=== PATIENT | female | born 1955 | race Caucasian/White ===

== ENCOUNTER 2018-07-09 07:46 | Day surgery (SDC) | END 2018-07-09 17:48 | disposition home or self-care (01) ==

== ENCOUNTER 2018-08-20 09:47 | Observation (INO) | payer OTHER ==
[2018-08-19 17:22] VITALS: BMI 26.0
[~2018-08-20] VITALS: Ht 157.5 cm; Wt 63.1 kg
[2018-08-20] VITALS (27 sets, daily range): BP systolic 119–159; BP diastolic 58–85; PULSE 70–88; RESP 10–20; Ht 157.5 cm; Wt 63.1 kg
[2018-08-20] MEDS ORDERED: CEFAZOLIN 2 GM/50 ML (PMX) 50 ML IVPB SCH (10:00)
[2018-08-20] MEDS: SOD CHLORIDE 0.9% 1,000 ML IV SCH ×2 (10:00→23:20)
[2018-08-20] MEDS ORDERED: SIMV20TA PO (11:06)
[2018-08-20] MEDS ORDERED: LEVO50TA7 PO (11:06)
--- NOTE | 2018-08-20 11:45 | PREAC ---
Date/Time of Note Date/Time of Note DATE: 08/20/18 TIME: 11:45 Anesthesia Eval and Record Evaluation Time Pre-Procedure Interview DATE: 08/20/18 TIME: 11:45 Age 62 Sex female NPO: 8 hrs Preoperative diagnosis R breast CA Planned procedure R radical mastectomy Past Medical History Past Medical History: Includes Cardio: HTN, Dyslipidemia Surgery & Anesthesia Issues No known issue Meds Anticoagulation: No Beta Purvi within 24 hr: No Reason Beta Purvi not given: Pt. not on B-Purvi Reported Medications Simvastatin* (Zocor*) 20 Mg Tablet, 20 MG PO QHS, #30 TAB 08/20/18 Levothyroxine Sodium* (Levothyroxine Sodium*) 50 Mcg Tablet, 50 MCG PO BEFORE BREAKFAST, #30 TAB 08/20/18 Current Medications Cefazolin Sodium/ Dextrose 50 ml @ 100 mls/hr ONCE IVPB ; Start 08/20/18 at 10:00; Stop 08/20/18 at 14:00 Sodium Chloride 1,000 ml @ 75 mls/hr [id number] IV ; Start 08/20/18 at 10:00 Meds reviewed: Yes Allergies Coded Allergies: No Known Allergies (Verified Allergy, Unknown, 08/19/18) Allergies Reviewed: Yes Labs/Studies Labs Reviewed: Reviewed by anesthesiologist test: Negative Studies: ECG Pre-procedure Exam Last vitals Vital Signs Date Temp Pulse Resp B/P (MAP) Pulse Ox O2 O2 Flow FiO2 Time Delivery Rate 08/20/18 98.4 72 16 128/72 97 Room Air 11:11 (90) Airway: Adequate mouth opening, Adequate thyromental dist Mallampati: Mallampati II Teeth: Normal Lung: Normal Heart: Normal ASA Physical Status ASA physical status: 2 Emergency: None Planned Anesthetic General/MAC: ETT Pre-operative Attestations Prior to commencing anesthesia and surgery, the patient was re-evaluated, there was verification of: *The patient's identity *The results of appropriate recent lab work and preoperative vital signs *The above evaluation not changing prior to induction *Anesthetic plan, risk benefits, alternative and complications discussed with patient/family; questions answered; patient/family understands, accepts and wishes to proceed. GENARO MARTINEZ Aug 20, 2018 11:45
[2018-08-20] MEDS ORDERED: ALBUTEROL 0.083% (NEB) 2.5 MG/3 ML AMP HHN PRN (12:00)
[2018-08-20] MEDS ORDERED: FENTAnyl 50 MCG/ML VIAL IV PRN ×3 (12:00)
[2018-08-20] MEDS ORDERED: DIPHENHYDRAMINE 50 MG INJ IV PRN (12:00)
[2018-08-20] MEDS ORDERED: ONDANSETRON 4 MG INJ IV PRN ×2 (12:00→13:30)
[2018-08-20] MEDS ORDERED: METOCLOPRAMIDE 10 MG INJ IV PRN (12:00)
[2018-08-20] MEDS ORDERED: HYDROmorphONE 1 MG/5 ML IV SYRINGE IV PRN ×3 (12:00)
[2018-08-20] MEDS ORDERED: MEPERIDINE 25 MG INJ IV PRN (12:00)
[2018-08-20] MEDS ORDERED: FENTAnyl 50 MCG/ML VIAL ONE (12:12)
[2018-08-20] MEDS ORDERED: NEOSTIGMINE 3 MG/3 ML SYRINGE ONE (12:22)
[2018-08-20] MEDS ORDERED: SUCCINYLCHOLINE CHLORIDE 100 MG/5 ML SYG IV ONE (12:22)
[2018-08-20] MEDS ORDERED: GLYCOPYRROLATE 0.4 MG INJ ONE (12:22)
[2018-08-20] MEDS ORDERED: ROCURONIUM 50 MG INJ ONE (12:22)
[2018-08-20] MEDS ORDERED: PROPOFOL 20 ML ONE (12:22)
[2018-08-20] MEDS ORDERED: CEFAZOLIN 1 GM INJ ONE (12:22)
--- NOTE | 2018-08-20 13:13 | SIPON ---
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
[2018-08-20] MEDS ORDERED: FAMOTIDINE 20 MG INJ ONE (13:25)
[2018-08-20] MEDS ORDERED: ONDANSETRON 4 MG INJ ONE (13:25)
[2018-08-20] MEDS ORDERED: morphine 4 MG/ML VIAL IV PRN (13:30)
[2018-08-20] MEDS ORDERED: ACETAMINOPHEN 1000MG/100ML IV 100 ML IVPB PRN (13:30)
--- NOTE | 2018-08-20 14:10 | OPR ---
DATE OF OPERATION: 08/20/2018 PREOPERATIVE DIAGNOSIS: Extensive ductal carcinoma in situ, right breast, need for right mastectomy. POSTOPERATIVE DIAGNOSIS: Extensive ductal carcinoma in situ, right breast, need for right mastectomy . OPERATION PERFORMED: Right modified radical mastectomy, resection of portion of pectoralis major mus christopher. ANESTHESIA: General. ANESTHESIOLOGIST: Rick Marino MD SURGEON: Sohail Le MD DRESSING ROOM PORTER: Kwame Meng MD and Joleen Irving MD INDICATIONS FOR PROCEDURE: The patient is a 62-year-old female who underwent surveillance mammograph y and was found to have a very suspicious microcalcifications in this right subareolar location. Cor e biopsy revealed DCIS. Subsequently, she underwent needle-directed excisional biopsy; however, the margins were grossly inadequate based on the location and the fact that the nipple would have to be r emoved. The patient was counseled as to the benefit of a right mastectomy with axillary sampling in view of the fact that there is a potential for an invasive component. She consented and was schedule d for surgery. DESCRIPTION OF PROCEDURE: The patient was brought to the operating theater, placed under general ane sthesia. The right breast and axillary region were prepped and draped in usual sterile fashion. Amor nned elliptical incision was demarcated widely around the nipple areolar complex with marking pen. T he incision was then carried out with 15-blade scalpel. Subcutaneous tissue was dissected with caute ry. The skin edges were then elevated with Allis Abdi clamps and using cautery, skin flaps were cre ated first superiorly to the clavicle, then medially to the sternal border, inferiorly to the inframa mmary fold and laterally until the latissimus dorsi muscle was identified throughout its course. Mas tectomy then took place from medial to lateral. During the process of the mastectomy, it became obvi ous that the previous biopsy cavity was involving some pectoralis major muscle. Therefore, a portion of the pectoralis major muscle was resected en bloc with the specimen. Mastectomy then continued to the border of the pectoral major muscle where the pectoralis minor muscle was identified. The clavi pectoral fascia was incised with blunt dissection along the chest wall. The long thoracic nerve was identified. Dissection of level [address] using the Voyant device, taking great care to preserve the intercostobrachial nerves. The lymph nodes were then removed en bloc with the jing denson. Final connective tissue attachments to latissimus dorsi were transected. Specimen was orie nted and sent for permanent pathologic analysis. The wound was irrigated. Minimal bleeding was cont rolled with cautery. Two #10 flat Alejandro-Combs drains were then brought through the right mid axill patrick line, one was cut to size and laid within the axilla, the other was cut to size and laid over the pectoralis major muscle. Both drains were secured in place with 2-0 nylon sutures in the standard f ashion. The skin was then reapproximated with a deep dermal layer of 4-0 Vicryl sutures in interrupt ed fashion, followed by final skin approximation with skin nathalia. The patient tolerated the proced ure well. The total blood loss was approximately 40 mL. There were no complications and the patient was then transported in stable condition to the recovery room where circumferential compression wrap was applied. Dictated By: SOHAIL LE MD TL/RIANA Conf#: [id number] DID#: [id number] CC: ERIN FERRELL MD;*EndCC*
--- NOTE | 2018-08-20 14:53 | PAC ---
Date/Time of Note Date/Time of Note DATE: 08/20/18 TIME: 14:53 Post-Anesthesia Notes Post-Anesthesia Note Last documented vital signs Vital Signs Date Temp Pulse Resp B/P (MAP) Pulse Ox O2 O2 Flow FiO2 Time Delivery Rate 08/20/18 Nasal 2.0 14:10 Cannula 08/20/18 98.3 13:46 08/20/18 72 16 128/72 97 11:11 (90) Activity: WNL Respiratory function: WNL Cardiovascular function: WNL Mental status: Baseline Pain reasonably controlled: Yes Hydration appropriate: Yes Nausea/Vomiting absent: Yes GENARO MARTINEZ Aug 20, 2018 14:53
--- NOTE | 2018-08-20 15:43 | NUR ---
PACU NOTES: PATIENT AWAKE AND ALERT. RECEIVED FROM OR WITH LEFT UPPER ARM INFILTRATED IV SITE, BP CUFF ON LEFT ARM. REINSERTED ON LEFT LOWER ARM #22 INFUSING, ICE PACK AND WARM COMPRESS PLACED ON LEFT UPPER ARM. RIGHT BREAST W/ DRESSING DRY AND INTACT WITH X 2 NIRANJAN DRAIN SEROSANGUINOUS OUTPUT #1 W/ 10 ML #2 W/ 25 ML. ABLE TO SIT AND REPOSITION, SCD IN PLACED. NOTIFIED DR. FERRELL OF ADMISSION. ABLE TO DO INCENTIVE SPIROMETER UPTO 1000 ML. FAMILY NOTIFIED OF TRANSFER TO ROOM 410-A, TOLERATED P.O FLUIDS.
[2018-08-20] MEDS ORDERED: HYDROCODONE/APAP (5/325) TAB PO PRN (16:00)
--- NOTE | 2018-08-20 16:28 | HP ---
DATE OF ADMISSION: 08/20/2018 CHIEF COMPLAINT AND HISTORY OF PRESENT ILLNESS: The patient is a 62-year-old female with history of core biopsy-proven right breast cancer. The patient was diagnosed with DCIS. Subsequently, she unde rwent excisional biopsy; however margins were grossly inadequate based on the location. The patient was seen by Dr. Chi as an outpatient and has been brought into the hospital today for right mastect ashwini with axillary sampling. The patient does have significant chest wall pain. The patient is there fore being admitted for further evaluation and management. The patient denied any history of fever o r chills. No history of headache, dizziness, syncope. No history of focal weakness. No history of abdominal pain. No history of vomiting or diarrhea. No history of recent dysuria or hematuria. No history of any joint swelling or skin rash. REVIEW OF SYSTEMS: Other than postoperative pain, rest of review of systems unremarkable. PAST SURGICAL HISTORY: The patient is status post cholecystectomy and as mentioned above, she is als o status post right needle-directed partial mastectomy on 07/09/2018. ALLERGIES: NONE. SOCIAL HISTORY: No smoking or alcohol. FAMILY HISTORY: Sisters have breast cancer. PHYSICAL EXAMINATION: GENERAL: Revealed the patient to be awake, alert, fairly oriented. VITAL SIGNS: Temperature 98.3, pulse 76, respirations 15, blood pressure 137/73, O2 saturation 98% o n 2 liters nasal cannula. HEENT: No eye discharge or redness. Conjunctivae are normal. Oropharynx is clear. NECK: No mass. CHEST: Fairly clear. CARDIOVASCULAR: S1, S2 normal. ABDOMEN: Soft, nondistended, nontender. EXTREMITIES: No leg edema. NEUROLOGIC: Revealed the patient to be awake, alert, fairly oriented with no gross focal deficit. LABORATORY DATA: Sodium 142, potassium 5, BUN 11, creatinine 0.7, glucose 91. Liver enzymes normal. Coagulation profile normal. WBC 6.7, hemoglobin 13.9, platelet 397. IMPRESSION: 1. Extensive ductal carcinoma in situ, right breast, status post right modified radical mastectomy. 2. Hypothyroidism. 3. Dyslipidemia. PLAN: The patient will be admitted on medical floor. The patient was started on clear liquid diet, which will be advanced as tolerated. The patient will have SCD for DVT prophylaxis. For pain contro l, the patient will be given Tylenol, [place] and IV morphine. We will resume statin and Synthroid. P rocky of care was discussed with the patient's family. We will continue to follow. Dictated By: ERIN SPARROW/RIANA Conf#: [id number] DID#: [id number] CC: REINALDO CHI MD;*EndCC*
[2018-08-20] MEDS: D5W-0.45 NACL + KCL 20 MEQ 1,000 ML IV SCH ×2 (16:44→21:14)
--- NOTE | 2018-08-20 19:00 | NUR ---
RN NOTES: Received patient from PACU at 1530, report given by Cheryl RUDOLPH; patient is alert and oriented x4, able to make needs known; no c/o pain or discomfort upon assessment; no SOB/respiratory distress noted, 99% on 2L/min of O2 via NC, IS encouraged; dressing to right chest incision is clean, dry and intact, bias wrap in place, connected to 2 NIRANJAN drains, patent and draining well; patient ambulates with assist; patient was already seen by Dr. Myles with orders made, noted; kept clean, dry and comfortable; call light placed within reached; all needs attended.
[2018-08-20] MEDS: ATORVASTATIN 10 MG TAB PO SCH (20:40)
[2018-08-21] VITALS: BP 129/63; PULSE 72; RESP 20
[2018-08-21] MEDS: D5W-0.45 NACL + KCL 20 MEQ 1,000 ML IV SCH ×2 (00:32→13:14)
[2018-08-21 05:00] VITALS: BP 120/77; PULSE 77; RESP 18
--- NOTE | 2018-08-21 05:18 | NUR ---
EOSS Patient alert oriented, no complained of discomfort. Vital signs stable no respiratory distress.Chest covered with bias wrap it was CDI. [address] wild moderate sanguinous output. Voiding adequately using the toilet. Diet was tolerated. IS encouraged and tolerated well. All needs attended, call light is within reach.
[2018-08-21] MEDS: LEVOTHYROXINE 50 MCG TAB PO SCH (06:27)
[2018-08-21 07:25] VITALS: BP 132/67; PULSE 82; RESP 18
[2018-08-21] MEDS ORDERED: INFLUENZA VIRUS VACCINE 0.5 ML (DISPENSING) IM* ONE (09:00)
--- NOTE | 2018-08-21 12:06 | PN ---
Date/Time of Note Date/Time of Note DATE: 08/21/18 TIME: 12:06 Assessment/Plan VTE Prophylaxis Risk score (from Ns)>0 risk: 4 SCD applied (from Ns): Yes Pharmacological prophylaxis: LMWH Lines/Catheters IV Catheter Type (from Nrs): Saline Lock Urinary Cath still in place: No Assessment/Plan Hospital Course 1. Extensive ductal carcinoma in situ, right breast, status post right modified radical mastectomy. 2. Hypothyroidism. 3. Dyslipidemia. Results 24hrs Laboratory Tests Test 08/21/18 07:02 Lab Scanned Report REFERENCE LAB Subjective 24 Hr Interval Summary Free Text/Dictation Patient has some pain but is controlled Exam/Review of Systems Exam Vitals Vital Signs Date Temp Pulse Resp B/P (MAP) Pulse Ox O2 O2 Flow FiO2 Time Delivery Rate 08/21/18 99.1 82 18 132/67 95 Room Air 07:25 (88) 08/20/18 2.0 18:30 Intake and Output 08/20/18 08/20/18 08/21/18 1515:00 23:00 07:00 IntakeIntake Total 360 ml 770 ml 1810 ml OutputOutput Total 20 ml 90 ml 61 ml BalanceBalance 340 ml 680 ml 1749 ml Constitutional: well developed Head: normocephalic, atraumatic Neck: supple Respiratory: diminished breath sounds Cardiovascular: regular rate and rhythm Gastrointestinal: soft, non-tender Extremities: normal pulses Results Results 24hrs Laboratory Tests Test 08/21/18 07:02 Lab Scanned Report REFERENCE LAB Medications Medication Current Medications Sodium Chloride 1,000 ml @ 75 mls/hr [id number] IV Last administered on 08/20/18at 10:00; Admin Dose 75 MLS/HR; Start 08/20/18 at 10:00 Ondansetron HCl (Zofran Inj) 4 mg Q6H PRN IV NAUSEA AND/OR VOMITING; Start 08/20/18 at 13:30 Potassium Chloride/Dextrose/ Sod Cl 1,000 ml @ 125 mls/hr Q8H IV Last administered on 08/21/18at 00:32; Admin Dose 125 MLS/HR; Start 08/20/18 at 13:14 Morphine Sulfate (morphine) 2 mg Q1H PRN IV fall risk; Start 08/20/18 at 13:30 Acetaminophen 100 ml @ 400 mls/hr Q6H PRN IVPB BREAKTHROUGH PAIN; Start 08/20/18 at 13:30; Stop 08/21/18 at 13:29 Acetaminophen/ Hydrocodone Bitart ([place] (5/325)) 1 tab Q4H PRN PO MODERATE PAIN LEVEL 4-6; Start 08/20/18 at 16:00 Levothyroxine Sodium (Synthroid) 50 mcg BEFORE BREAKFAST PO Last administered on 08/21/18at 06:27; Admin Dose 50 MCG; Start 08/21/18 at 07:00 Atorvastatin Calcium (Lipitor) 10 mg QHS PO Last administered on 08/20/18at 20:40; Admin Dose 10 MG; Start 08/20/18 at 21:00 SONYA WAHL Aug 21, 2018 12:06
[2018-08-21] MEDS ORDERED: CEPASTAT LOZENGE ONE (12:16)
[2018-08-21] MEDS ORDERED: CEPASTAT LOZENGE MT PRN (12:30)
[2018-08-21] MEDS: SOD CHLORIDE 0.9% 1,000 ML IV SCH (12:40)
[2018-08-21] MEDS ORDERED: morphine LIQ (10 MG/5 ML) CUP PO PRN (15:00)
--- NOTE | 2018-08-21 15:32 | PN ---
DATE: 08/21/2018 Postop day #1 status post right breast modified radical mastectomy. No specific complaint. OBJECTIVE GENERAL: Awake, alert, oriented. VITAL SIGNS: Temperature maximum 99.1, heart rate 82, respiration 18, blood pressure 133/67, saturation 95% room air. LABORATORY DATA: No lab was done today. PHYSICAL EXAM HEART: Regular. LUNGS: Clear. Dressing is intact. The 2 Alejandro-Combs drains, one has drained 100 mL from yesterday to 7 a.m. today. The other one has drained 60 mL in the same period and since morning 7 o'clock until now, which is 2 o'clock, 1 was 60 mL and the other 30 mL. The one that has drained 60 mL is quite bloody and I milked the tubing and cleared the clots on the tubing. Considering this problem, we are going to keep the patient overnight to make sure that she is not developing hematoma under the flaps and also the bleeding would slow down or changes to consistency to serosanguineous and hopefully we can discharge the patient tomorrow. Dictated By: BUBBA AVELAR MD PS/NTS Conf#: [id number] DID#: [id number] CC: ERIN FERRELL MD; REINALDO CHI MD;*EndCC* MTDD
--- NOTE | 2018-08-21 16:34 | NUR ---
PATIENT AA,ORIENTED X4.POST OP DAY #1 RIGHT MASTECTOMY.PATIENT HAS 2 NIRANJAN DRAIN INTACT,EDUCATED PT AND FAMILY WITH NIRANJAN CARE AND EMPTYING OF NIRANJAN BULB.PATIENT DENIES SEVERE PAIN ,SHE PREFERS NOT TO TAKE PAIN MEDICATION.AMBULATORY WITH ASSIST AND PLAN FOR DC HOME IN AM.
[2018-08-21 19:40] VITALS: BP 141/78; PULSE 77; RESP 20
[2018-08-21] MEDS: ATORVASTATIN 10 MG TAB PO SCH (20:55)
[2018-08-21] MEDS ORDERED: ACETAMINOPHEN 325 MG TAB PO PRN (21:00)
[2018-08-22 02:20] VITALS: BP 134/68; PULSE 67; RESP 20
[2018-08-22] MEDS: LEVOTHYROXINE 50 MCG TAB PO SCH (06:12)
--- NOTE | 2018-08-22 06:46 | NUR ---
EOSS Patient alert, oriented vital sign stable no respiratory distress. Complained of headache relieved with tylenol. Patient able to sleep through the night, Right breast surgical incision covered with bias wrap, with 2 NIRANJAN inplaced patent with mild serosanginous output. Voiding adequately using the toilet. Tolerated diet, all needs attended, call light is within reach.
[2018-08-22 10:17] VITALS: BP 130/65; PULSE 65; RESP 17
--- NOTE | 2018-08-22 12:50 | PN ---
Date/Time of Note Date/Time of Note DATE: 08/22/18 TIME: 12:49 Assessment/Plan VTE Prophylaxis Risk score (from [facility] [place])>0 risk: 7 SCD applied (from [facility] [place]): Yes Pharmacological prophylaxis: LMWH Lines/Catheters IV Catheter Type (from [facility]): Saline Lock Urinary Cath still in place: No Assessment/Plan Hospital Course 1. Extensive ductal carcinoma in situ, right breast, status post right modified radical mastectomy. 2. Hypothyroidism. 3. Dyslipidemia. Result Diagram: 08/22/18 0442 Results 24hrs Laboratory Tests Test 08/22/18 04:42 White Blood Count 8.4 Red Blood Count 4.46 Hemoglobin 11.7 L Hematocrit 36.1 L Mean Corpuscular Volume 80.9 L Mean Corpuscular Hemoglobin 26.2 L Mean Corpuscular Hemoglobin Concent 32.4 Red Cell Distribution Width 14.5 Platelet Count 299 Mean Platelet Volume 9.7 Immature Granulocytes % 0.400 Neutrophils % 49.1 Lymphocytes % 33.8 Monocytes % 10.7 Eosinophils % 5.8 Basophils % 0.2 Nucleated Red Blood Cells % 0.0 Immature Granulocytes # 0.030 Neutrophils # 4.2 Lymphocytes # 2.9 Monocytes # 0.9 Eosinophils # 0.5 Basophils # 0.0 Nucleated Red Blood Cells # 0.0 Subjective 24 Hr Interval Summary Free Text/Dictation Patient is doing ok, pain controlled Exam/Review of Systems Exam Vitals Vital Signs Date Temp Pulse Resp B/P (MAP) Pulse Ox O2 O2 Flow FiO2 Time Delivery Rate 08/22/18 98.8 65 17 130/65 100 Room Air 10:17 (86) 08/20/18 2.0 18:30 Intake and Output 08/21/18 08/21/18 08/22/18 1414:59 22:59 06:59 IntakeIntake Total 300 ml 180 ml OutputOutput Total 80 ml 35 ml BalanceBalance 220 ml 180 ml -35 ml Constitutional: well developed Head: normocephalic, atraumatic Neck: supple Respiratory: clear to auscultation Cardiovascular: regular rate and rhythm Gastrointestinal: soft, non-tender Extremities: normal pulses Results Results 24hrs Laboratory Tests Test 08/22/18 04:42 White Blood Count 8.4 Red Blood Count 4.46 Hemoglobin 11.7 L Hematocrit 36.1 L Mean Corpuscular Volume 80.9 L Mean Corpuscular Hemoglobin 26.2 L Mean Corpuscular Hemoglobin Concent 32.4 Red Cell Distribution Width 14.5 Platelet Count 299 Mean Platelet Volume 9.7 Immature Granulocytes % 0.400 Neutrophils % 49.1 Lymphocytes % 33.8 Monocytes % 10.7 Eosinophils % 5.8 Basophils % 0.2 Nucleated Red Blood Cells % 0.0 Immature Granulocytes # 0.030 Neutrophils # 4.2 Lymphocytes # 2.9 Monocytes # 0.9 Eosinophils # 0.5 Basophils # 0.0 Nucleated Red Blood Cells # 0.0 Medications Medication Current Medications Ondansetron HCl (Zofran Inj) 4 mg Q6H PRN IV NAUSEA AND/OR VOMITING; Start 08/20/18 at 13:30 Acetaminophen/ Hydrocodone Bitart ([place] (5/325)) 1 tab Q4H PRN PO MODERATE PAIN LEVEL 4-6; Start 08/20/18 at 16:00 Levothyroxine Sodium (Synthroid) 50 mcg BEFORE BREAKFAST PO Last administered on 08/22/18at 06:12; Admin Dose 50 MCG; Start 08/21/18 at 07:00 Atorvastatin Calcium (Lipitor) 10 mg QHS PO Last administered on 08/21/18at 20:55; Admin Dose 10 MG; Start 08/20/18 at 21:00 Phenol (Cepastat Lozenge) 1 lozenge Q1H PRN MT SORE THROAT Last administered on 08/21/18at 12:48; Admin Dose 1 LOZENGE; Start 08/21/18 at 12:30 Morphine Sulfate (morphine) 6 mg Q1H PRN PO SEVERE PAIN LEVEL 7-10; Start 08/21/18 at 15:00 Acetaminophen (Tylenol Tab) 650 mg Q6H PRN PO MILD PAIN(1-3)OR ELEVATED TEMP Last administered on 08/21/18at 21:17; Admin Dose 650 MG; Start 08/21/18 at 21:00 SONYA WAHL Aug 22, 2018 12:49
--- NOTE | 2018-08-22 14:58 | PN ---
DATE: 08/22/2018 Postop day #2 status post right breast modified radical mastectomy. SUBJECTIVE: Feels better. OBJECTIVE: GENERAL: Awake, alert, oriented x3. VITAL SIGNS: Temperature maximum 98.1, heart rate 65, respirations 17, blood pressure 130/65, saturation 100% room air. INPUT AND OUTPUT: Alejandro-Lisa have drained 80 mL and 35 mL, respectively total 115 mL in past 24 hours. Right now, the drainage in the tubing is serosanguineous. Dressing is intact. IMPRESSION AND PLAN: The patient is stable. Therefore, the patient can be discharged home today in the care of her . The and her son were taught the care of the Alejandro-Combs drains to drain them and how to measure them on a piece of paper and to take them to Dr. Le' office when they go to see him on 09/07/2018. They understood the instructions and the patient is going to be discharged. Dictated By: BUBBA AVELAR MD PS/NTS Conf#: [id number] DID#: [id number] CC: ERIN FERRELL MD; REINALDO LE MD;*EndCC* MTDD
--- NOTE | 2018-08-22 15:30 | NUR ---
Discharge note: Reviewed Dc instructions thoroughly w/ pt and spouse. Understanding verbalized. Pt signed handout-placed in chart. Pt to F/U w/ Dr. Le in two weeks- spouse states appt already set. Pt instructed no BP in R arm and to keep RUE elevated. Script for [place] given to pt ( copy placed in chart). Pt instructed on NIRANJAN drain care, and emptying at home- pt demos correct way of empting drains,applying suction and "milking" the NIRANJAN drains. Instructed to record output- paper given. Also instructed to take paper to MD's office at F/U. IVL dc'd and pressure dsg applied- bleeding well controlled. Dsg C/D/I. 4x4 Gauze placed on skin per Dr. Epperson's recommendation. where pt was c/o itching. Dc to dayna per W/c. A/O x4 @ DC.
== END 2018-08-22 15:25 | disposition home or self-care (01) ==
LOC: SDS 09:47 → REC 13:14 → INTOOBSV 13:14 → MS1 15:31
PROVIDERS: ADMIT Surgery Surgical Oncology; ATTEND Surgery Surgical Oncology
DX: N60.91 Unspecified benign mammary dysplasia of right breast (principal); Z85.3 Personal history of malignant neoplasm of breast; I10 Essential (primary) hypertension; E78.5 Hyperlipidemia, unspecified
CPT/HCPCS: 19307; 85025; 88307; J0690; J2405; J2710; J2765; J3010; J3480; J7030; Z7500; Z7512; Z7610; 90686; 99217; G0378